=== PATIENT | female | born 2005 | race Caucasian/White ===

== ENCOUNTER 2023-07-12 13:31 | Emergency (ER) | payer BC ==
[~2023-07-12] VITALS: Ht 167.6 cm; Wt 122.7 kg
[2023-07-12] MEDS ORDERED: INDERAL60 MG PO (13:48)
[2023-07-12] MEDS ORDERED: KLONOPIN 0.5MG0.5 MG PO (13:49)
[2023-07-12 14:44] LABS: BASO # 0.1 K/mm3 (0.0-0.2); BASO % 0.9 % (0.0-2.0); EOS # 0.2 K/mm3 (0.0-0.7); EOS % 3.6 % (0.0-4.0); GRAN # 3.4 K/mm3 (1.4-6.5); GRAN % 59.6 % (42.2-75.2); HEMATOCRIT 38.8 % (35.0-45.0); HEMOGLOBIN 12.9 g/dl (12.0-15.0); LYMPH # 1.7 K/mm3 (1.2-3.4); LYMPH % 30.7 % (20.0-51.0); MEAN CELL VOLUME 83 fl (80.0-95.0); MEAN CORPUSCULAR HEMOGLOBIN 28 pg (26-32); MEAN CORPUSCULAR HGB CONC 33 g/dl (33.0-37.0); MEAN PLATELET VOLUME 10.1 fl (7.4-10.4); MONO # 0.3 K/mm3 (0.1-0.6); PLATELET COUNT 267 K/mm3 (130-400); RED BLOOD COUNT 4.66 M/mm3 (4.10-5.30); REDCELL DISTRIBUTION WIDTH-CV 13.2 % (11.5-14.5)
[2023-07-12 15:00] LABS: ALANINE AMINOTRANSFERASE 18 U/L (0-55); ALBUMIN 4.2 gm/dL (3.5-5.0); ALKALINE PHOSPHATASE 86 U/L (40-150); ANION GAP 8 mmol/L (7-16); AST,SGOT 18 U/L (5-34); BILIRUBIN,TOTAL 0.3 mg/dL (0.2-1.2); BLOOD UREA NITROGEN 10 mg/dL (7-19); CALCIUM 9.2 mg/dL (8.4-10.2); CARBON DIOXIDE 23 mmol/L (22-29); CHLORIDE 108 mmol/L (98-107); CREATININE, serum 0.69 mg/dL (0.57-1.11); GLUCOSE 86 mg/dL (70-99); SODIUM 139 mmol/L (136-145); TOTAL PROTEIN 7.1 gm/dL (6.2-8.1)
[2023-07-12 15:34] LABS: TROPONIN-I < 0.010 ng/mL (0.00-0.033)
[2023-07-12 15:57] VITALS: BP 124/80; PULSE 62; TEMP 99
== END 2023-07-12 16:00 | disposition home or self-care (01) ==
LOC: COL.ER 13:31
PROVIDERS: Emergency Medicine
DX: I10 Essential (primary) hypertension (principal); Z28.310 Unvaccinated for COVID-19

== ENCOUNTER 2024-04-29 00:07 | Emergency (ER) | payer BC ==
[~2024-04-29] VITALS: Ht 167.6 cm; Wt 127.3 kg
[~2024-04-29 00:07] MED LIST: CEPHALEXIN500 M1 PO; INDERAL60 MG PO; KLONOPIN 0.5MG0.5 MG PO; MOTRIN 800800 MG/TAB PO; NORCO 325 MG-51 TAB PO; PEPCID 20MG TAB20 MG PO; ZOFRAN ODT4 MG PO
[2024-04-29] MEDS ORDERED: NS 1,000 ML IV ONE (00:30)
[2024-04-29] MEDS ORDERED: diphenhydrAMINE 50 MG/ML 1 ML VIAL IV ONE (00:30)
[2024-04-29 00:45] LABS: BASO # 0.1 K/mm3 (0.0-0.2); BASO % 0.7 % (0.0-2.0); EOS # 0.6 K/mm3 (0.0-0.7); EOS % 4.5 % (0.0-4.0); GRAN # 7.6 K/mm3 (1.4-6.5); GRAN % 60.7 % (42.2-75.2); HEMATOCRIT 43.5 % (35.0-45.0); HEMOGLOBIN 14.8 g/dl (12.0-15.0); LYMPH # 3.7 K/mm3 (1.2-3.4); LYMPH % 29.4 % (20.0-51.0); MEAN CELL VOLUME 85 fl (80.0-95.0); MEAN CORPUSCULAR HEMOGLOBIN 29 pg (26-32); MEAN CORPUSCULAR HGB CONC 34 g/dl (33.0-37.0); MEAN PLATELET VOLUME 9.8 fl (7.4-10.4); MONO # 0.6 K/mm3 (0.1-0.6); MONO % 4.5 % (1.7-9.3); PLATELET COUNT 305 K/mm3 (130-400); RED BLOOD COUNT 5.14 M/mm3 (4.10-5.30)
[2024-04-29] MEDS ORDERED: dexAMETHasone 10 MG/ML VIAL IV ONE (00:45)
[2024-04-29 01:01] LABS: ALBUMIN 3.8 g/dL (3.5-5.0); BILIRUBIN,TOTAL 0.3 mg/dL (0.2-1.2); CALCIUM 8.5 mg/dL (8.4-10.2); CREATININE, serum 0.7 mg/dL (0.57-1.11); POTASSIUM 4.2 mEq/L (3.5-4.5); TOTAL PROTEIN 6.6 g/dl (6.2-8.1)
[2024-04-29 01:19] LABS: COLLECTION METHOD CLEAN CATCH
[2024-04-29 01:28] LABS: PH 5.5 (5.0-8.5); URINE APPEARANCE CLEAR (CLEAR/HAZY); URINE BLOOD NEGATIVE (NEGATIVE); URINE COLOR YELLOW (YELLOW); URINE GLUCOSE NEGATIVE (NEGATIVE); URINE KETONE NEGATIVE (NEGATIVE); URINE NITRATE NEGATIVE (NEGATIVE); URINE PROTEIN(semi-quant) NEGATIVE (NEGATIVE); URINE UROBILINOGEN 0.2 E.U/dL (0.2-1.0)
[2024-04-29] MEDS ORDERED: CEPHALEXIN500 M1 PO (02:33)
[2024-04-29] MEDS ORDERED: cefTRIAXone 1 G in Water For Injection,Sterile 10 ML IV ONE (02:45)
[2024-04-29 03:27] VITALS: BP 134/84; PULSE 78; TEMP 98.6
== END 2024-04-29 03:29 | disposition home or self-care (01) ==
LOC: COL.ER 00:07
PROVIDERS: Physician Assistant
DX: R51.9 Headache, unspecified (principal); N39.0 Urinary tract infection, site not specified
CPT/HCPCS: J0696; J1100; J1200; J2765; J7030